=== PATIENT | female | born 1985 | race Caucasian/White ===

== ENCOUNTER 2018-12-12 04:48 | Emergency (ER) | payer OTHER ==
[2018-12-12 04:57] VITALS: BP 134/81
--- NOTE | 2018-12-12 05:20 | ED ---
Throat Pain/Nasal Congestion - HPI Summary HPI Summary: This patient is a 33 year old F presenting to ED with a chief complaint of possible HPV sx since about 1 week ago. She had a recent sexual encounter and found out after that he had HPV. Yesterday, she had small white dots on the inside of her mouth. They have since resolved. But she woke up early this morning and found swelling around her lips and a sore throat. The patient rates the pain 1/10 in severity. Symptoms aggravated by nothing. Symptoms alleviated by nothing. - History of Current Complaint Chief Complaint: EDUrogenitalProblems Time Seen by Provider: 12/12/18 04:59 Hx Obtained From: Patient Onset/Duration: Sudden Onset, Lasting Hours, Still Present Severity: Mild - 1/10 - Allergies/Home Medications Allergies/Adverse Reactions: Allergies Allergy/AdvReac Type Severity Reaction Status Date / Time No Known Allergies Allergy Verified 12/12/18 04:54 PMH/Surg Hx/FS Hx/Imm Hx Endocrine/Hematology History: Denies: Hx Diabetes Cardiovascular History: Denies: Hx Coronary Artery Disease, Hx Hypertension Infectious Disease History: Yes Infectious Disease History: Reports: Hx of Known/Suspected MRSA - SKIN INFECTION Denies: History Other Infectious Disease, Traveled Outside the [place] in Last 30 Days - Family History Known Family History: Negative: Cardiac Disease, Hypertension, Diabetes - Social History Alcohol Use: Rare Alcohol Amount: EOD, 2 drinks Substance Use Type: Reports: None Smoking Status (MU): Current Every Day Smoker Type: Cigarettes Amount Used/How Often: 1 PPD Review of Systems Negative: Fever Positive: Sore Throat, Other - small white dots on the inside of her mouth, swelling around her lips All Other Systems Reviewed And Are Negative: Yes Physical Exam - Summary Physical Exam Summary: VITAL SIGNS: Reviewed. GENERAL: Patient is a well-developed and nourished FEMALE who is lying comfortable in the stretcher. Patient is not in any acute respiratory distress. HEAD AND FACE: No signs of trauma. No ecchymosis, hematomas or skull depressions. No sinus tenderness. EYES: PERRLA, EOMI x 2, No injected conjunctiva, no nystagmus. EARS: Hearing grossly intact. Ear canals and tympanic membranes are within normal limits. MOUTH: Oropharynx within normal limits. NECK: Supple, trachea is midline, no adenopathy, no JVD, no carotid bruit, no c- spine tenderness, neck with full ROM. CHEST: Symmetric, no tenderness at palpation LUNGS: Clear to auscultation bilaterally. No wheezing or crackles. CVS: Regular rate and rhythm, S1 and S2 present, no murmurs or gallops appreciated. ABDOMEN: Soft, non-tender. No signs of distention. No rebound no guarding, and no masses palpated. Bowel sounds are normal. EXTREMITIES: FROM in all major joints, no edema, no cyanosis or clubbing. NEURO: Alert and oriented x 3. No acute neurological deficits. Speech is normal and follows commands. SKIN: Dry and warm PSYCH: anxious Triage Information Reviewed: Yes Vital Signs On Initial Exam: Initial Vitals Temp Pulse Resp BP Pulse Ox 98.8 F 116 18 134/81 95 12/12/18 04:53 12/12/18 04:53 12/12/18 04:53 12/12/18 04:53 12/12/18 04:53 Vital Signs Reviewed: Yes Diagnostics - Vital Signs Vital Signs Temp Pulse Resp BP Pulse Ox 12/12/18 04:53 98.8 F 116 18 134/81 95 - Laboratory Lab Statement: Any lab studies that have been ordered have been reviewed, and results considered in the medical decision making process. EENT Course/Dx - Course Assessment/Plan: This patient is a 33 year old F presenting to ED with a chief complaint of possible HPV sx since about 1 week ago. She had a recent sexual encounter and found out after that he had HPV. Yesterday, she had small white dots on the inside of her mouth. They have since resolved. But she woke up early this morning and found swelling around her lips and a sore throat. The patient will be discharged with dx of anxiety. - Differential Diagnoses Differential Diagnoses: Other - anxiety - Diagnoses Provider Diagnoses: Anxiety Discharge - Sign-Out/Discharge Documenting (check all that apply): Patient Departure - discharge Patient Received Moderate/Deep Sedation with Procedure: No - Discharge Plan Condition: Stable Disposition: HOME Patient Education Materials: Genital Warts (ED), Common Wart (ED), Anxiety (ED) Referrals: Jose Eduardo Figueroa MD [Primary Care Provider] - (Follow up in 1-2 days.) Additional Instructions: RETURN TO THE EMERGENCY DEPARTMENT FOR CHANGING OR WORSENING SYMPTOMS. FOLLOW UP WITH PCP IN 1-2 DAYS. - Billing Disposition and Condition Condition: STABLE Disposition: Home - Attestation Statements Document Initiated by Scribe: Yes Documenting Scribe: Oscar Izaguirre Provider For Whom Amandaibjossue is Documenting (Include Credential): Humberto Aviles MD Scribe Attestation: Oscar Fong, scribed for Humberto Aviles MD on 12/12/18 at 0532. Scribe Documentation Reviewed: Yes Provider Attestation: The documentation as recorded by the Oscar tierney accurately reflects the service I personally performed and the decisions made by Kristen lambert MD Status of Scribe Document: Viewed
== END 2018-12-12 05:29 | disposition home or self-care (01) ==
LOC: ED 04:48
DX: F41.9 Anxiety disorder, unspecified (principal); F17.210 Nicotine dependence, cigarettes, uncomplicated
CPT/HCPCS: 99282

== ENCOUNTER 2019-01-09 17:51 | Emergency (ER) | payer OTHER ==
--- NOTE | 2019-01-09 21:10 | ED ---
GI/ HPI - HPI Summary HPI Summary: 33-year-old female presents with vaginal and mouth lesions. She states that they seem to come and go. She states she started noticing some wet spot vaginal lesions. She states she is concerned she has HPV as she believes her partner had HPV. She denies any abnormal vaginal discharge. No pelvic pain. No nausea or vomiting. 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 She did follow up with [facility] and did self cultures couple weeks ago but has not got the results yet. Denies any other symptoms. - History of Current Complaint Chief Complaint: EDGeneral Time Seen by Provider: 01/09/19 20:27 Stated Complaint: POSS INFECTION PER PT Hx Last Menstrual Period: 2 WEEKS AGO Pain Intensity: 0 - Allergy/Home Medications Allergies/Adverse Reactions: Allergies Allergy/AdvReac Type Severity Reaction Status Date / Time No Known Allergies Allergy Verified 01/09/19 18:00 Home Medications: Home Medications Biotin [Biotin Ultra Strength] 10 mg PO DAILY 01/09/19 [History Confirmed ] Cholecalciferol (Vitamin D3) [Vitamin D3] 4,000 unit PO DAILY 01/09/19 [History Confirmed 01/09/19] Folic Acid TAB* [Folvite TAB*] 1 mg PO DAILY 01/09/19 [History Confirmed ] PMH/Surg Hx/FS Hx/Imm Hx Endocrine/Hematology History: Denies: Hx Diabetes Cardiovascular History: Denies: Hx Coronary Artery Disease, Hx Hypertension Infectious Disease History: Yes Infectious Disease History: Reports: Hx of Known/Suspected MRSA - SKIN INFECTION Denies: History Other Infectious Disease, Traveled Outside the [place] in Last 30 Days - Family History Known Family History: Negative: Cardiac Disease, Hypertension, Diabetes - Social History Alcohol Use: Rare Alcohol Amount: EOD, 2 drinks Substance Use Type: Reports: None Smoking Status (MU): Current Every Day Smoker Type: Cigarettes Amount Used/How Often: 1 PPD Review of Systems Negative: Fever Negative: Chest Pain Negative: Shortness Of Breath Positive: Other - mouth and vaginal lesion All Other Systems Reviewed And Are Negative: Yes Physical Exam Triage Information Reviewed: Yes Vital Signs On Initial Exam: Initial Vitals Temp Pulse Resp BP Pulse Ox 97.8 F 108 16 127/88 95 01/09/19 17:55 01/09/19 17:55 01/09/19 17:55 01/09/19 17:55 01/09/19 17:55 Vital Signs Reviewed: Yes Appearance: Positive: Well-Appearing Skin: Positive: Warm, Dry Head/Face: Positive: Normal Head/Face Inspection Eyes: Positive: Normal, EOMI, [place], Conjunctiva Clear ENT: Positive: Normal ENT inspection, Pharynx normal, TMs normal Respiratory/Lung Sounds: Positive: Clear to Auscultation, Breath Sounds Present Cardiovascular: Positive: Normal, RRR Abdomen Description: Positive: Nontender, Soft Bowel Sounds: Positive: Present Pelvic Exam: Positive: Speculum Exam Normal, Bimanual Exam Normal, No Cerv. Motion Tender, Other - small pin point papule seen, no ulcer, no surrounding erythema Musculoskeletal: Positive: Normal Neurological: Positive: Normal Psychiatric: Positive: Normal Diagnostics - Vital Signs Vital Signs Temp Pulse Resp BP Pulse Ox 01/09/19 17:55 97.8 F 108 16 127/88 95 - Laboratory Lab Statement: Any lab studies that have been ordered have been reviewed, and results considered in the medical decision making process. GIGU Course/Dx - Course Course Of Treatment: 33-year-old female presents with vaginal and mouth lesions. She states that they seem to come and go. She states she started noticing some wet spot vaginal lesions. She states she is concerned she has HPV as she believes her partner had HPV. She denies any abnormal vaginal discharge. No pelvic pain. No nausea or vomiting. 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 She did follow up with [facility] and did self cultures couple weeks ago but has not got the results yet. Denies any other symptoms. On exam small papules seen in the mouth. on vulva small papules seen. No abscess or ulcers noted. lesions do not appear like genital warts or HSV at this time. Had cultures and will call with results of anything positive. Told to follow-up with case aide to have Pap smear to test for HPV. Told to follow up with dentist as is also having dental pain. Patient understands agrees with plan. - Diagnoses Differential Diagnoses - Female: STD, Urinary Tract Infection, Other - abscess Provider Diagnoses: Vaginal lesion Discharge - Sign-Out/Discharge Documenting (check all that apply): Patient Departure Patient Received Moderate/Deep Sedation with Procedure: No - Discharge Plan Condition: Good Disposition: HOME Referrals: Jose Eduardo Figueroa MD [Primary Care Provider] - Additional Instructions: follow up with case aide Will call if any positive results return to ED if develop any new or worsening symptoms - Billing Disposition and Condition Condition: GOOD Disposition: Home
[2019-01-09 21:19] VITALS: BP 0/0
[2019-01-10 14:15] LABS: Neisseria gonorrhoeae (GC) RNA Negative (Negative)
[2019-01-10 14:30] LABS: Trichomonas vaginalis Result Negative (Negative)
--- NOTE | 2019-01-12 13:07 | PN ---
Progress Note - Progress Note Date of Service: 01/09/19 Note: Pt. seen 01/09 for vaginal discharge. Cultures today positive for gardnerella. Attempted to call pt. today at 1301 with no answer. Message left to return call. Rx for flagyl sent to pharmacy. Will sent letter.
== END 2019-01-09 21:17 | disposition home or self-care (01) ==
LOC: ED 17:51
DX: N89.8 Other specified noninflammatory disorders of vagina (principal); F17.210 Nicotine dependence, cigarettes, uncomplicated; Z86.14 Personal history of Methicillin resistant Staphylococcus aureus infection
CPT/HCPCS: 87480; 87491; 87510; 87591; 87661; 99282